=== PATIENT | female | born 1955 | race Caucasian/White ===

== ENCOUNTER 2017-10-22 05:43 | Emergency (ER) | payer MEDICAID ==
[2017-10-22 05:43] VITALS: BMI 37.1
[2017-10-22 06:03] VITALS: BP 104/73; PULSE 78; TEMP 97.5; O2SAT 99
[2017-10-22] MEDS ORDERED: Naproxen 550 mg Tab PO STA (07:26)
--- NOTE | 2017-10-22 07:30 | C.PDOC ---
History Of Present Illness 62-year-old female, presents to the emergency department complaining of bilateral hand numbness and tingling, primarily at lateral aspect of hands. Patient seen by Dr Hartman one week ago and given an injection in the area without improvement. She denies injuries or falls. No other complaints at this time. Time Seen by Provider: 10/22/17 07:02 Chief Complaint (Nursing): Upper Extremity Problem/Injury History Per: Patient History/Exam Limitations: no limitations Onset/Duration Of Symptoms: Days Current Symptoms Are (Timing): Still Present Past Medical History Reviewed: Historical Data, Nursing Documentation, Vital Signs Vital Signs: Last Vital Signs Temp 97.5 F L 10/22/17 05:53 Pulse 78 10/22/17 05:53 Resp 18 10/22/17 07:55 BP 104/73 10/22/17 05:53 Pulse Ox 99 10/22/17 11:48 - Medical History PMH: Arthritis, Back Problems, Depression, Diabetes (type II), GERD, Hypercholesterolemia, Hypothyroidism, Malignancy (right breast (chemotherapy x6 , radiation x35)) Denies: Chronic Kidney Disease - [facility] Procedures COLONOSCOPY (04/12/15) ESOPHAGOGASTRODUODENOSCOPY [EGD] W/CLOSED BIOPSY (02/06/13) PHYSICAL THERAPY NEC (09/07/14) Family History: States: No Known Family Hx - Social History Hx Alcohol Use: No Hx Substance Use: No - Immunization History Hx Tetanus Toxoid Vaccination: No Hx Influenza Vaccination: No Hx Pneumococcal Vaccination: No Review Of Systems Constitutional: Negative for: Fever, Chills Cardiovascular: Negative for: Chest Pain Respiratory: Negative for: Shortness of Breath Gastrointestinal: Negative for: Nausea, Vomiting Neurological: Positive for: Numbness ((+)tingling, pain to wrist.). Negative for: Weakness, Incoordination, Headache, Dizziness Physical Exam - Physical Exam Appears: Non-toxic, No Acute Distress Skin: Normal Color, Warm, Dry, No Rash Head: Atraumatic, Normacephalic Nose: Normal Oral Mucosa: Moist Lips: Normal Appearing Neck: Normal ROM Chest: Symmetrical Cardiovascular: Rhythm Regular, No Murmur Respiratory: Normal Breath Sounds, No Accessory Muscle Use Extremity: Tenderness, Capillary Refill (<2 seconds), No Deformity, No Swelling , Other (Tender to palpation at lateral wrist, able to reproduce numbness/ tingling sensation by palpation) Pulses: Left Radial: Normal, Right Radial: Normal Neurological/Psych: Oriented x3, Normal Speech ED Course And Treatment O2 Sat by Pulse Oximetry: 99 (RA) Pulse Ox Interpretation: Normal Progress Note: Patient treated with PO Naproxen. On re-evaluation, pain has improved. Patient is resting comfortably, and is in no acute distress. Patients B/L wrists placed in splint by automotive service technician. Patient was instructed to follow up with physician/clinic in 1-2 days for further evaluation. Disposition Counseled Patient/Family Regarding: Diagnosis, Need For Followup, Rx Given - Disposition Referrals: Jose Angel Hartman MD [Staff Provider] - Karissa Yee MD [Staff Provider] - Disposition: HOME/ ROUTINE Disposition Time: 07:30 Condition: STABLE Additional Instructions: FOLLOW UP WITH HAND SURGEON WITHIN 1 WEEK USE PAIN MEDICATION DIRECTED RETURN TO EMERGENCY ROOM IF SYMPTOMS WORSEN SEGUIMIENTO CON CIRUJANO DE MANO DENTRO DE 1 SEMANA UTILIZAR EL MEDICAMENTO PARA EL DOLOR TONIA SE INDICA REGRESE AL KRISTYN DE EMERGENCIA SI LOS SNTOMAS EMPEORAN Prescriptions: Naproxen [Naprosyn] 1 tab PO BID PRN #25 tab PRN Reason: Pain Instructions: Carpal Tunnel Syndrome Forms: [facility] (Bermudian) Print Language: TURKISH - POA Present On Arrival: None - Clinical Impression Clinical Impression: Hand pain, Carpal tunnel syndrome on both sides - Scribe Statement The provider has reviewed the documentation as recorded by the Scribe (Mónica Pearson) All medical record entries made by the Scribe were at my direction and personally dictated by me. I have reviewed the chart and agree that the record accurately reflects my personal performance of the history, physical exam, medical decision making, and the department course for this patient. I have also personally directed, reviewed, and agree with the discharge instructions and disposition.
[2017-10-22] MEDS ORDERED: Naproxen 550 mg Tab PO ONE (07:36)
[2017-10-22 07:56] VITALS: RESP 18
== END 2017-10-22 07:55 | disposition home or self-care (01) ==
LOC: C.ER 05:43
DX: G56.03 Carpal tunnel syndrome, bilateral upper limbs (principal); M79.642 Pain in left hand; M79.641 Pain in right hand

== ENCOUNTER 2018-01-08 13:18 | Emergency (ER) | payer MEDICAID ==
[2018-01-08 13:18] VITALS: BMI 37.1
--- NOTE | 2018-01-08 15:02 | RAD ---
PROCEDURE: Left Foot Radiographs. HISTORY: Posttraumatic pain COMPARISON: None. FINDINGS: BONES: No acute fracture. Small plantar calcaneal spur. Osseous excrescence is identified adjacent to the talus suggests the sequela of prior trauma JOINTS: Normal. SOFT TISSUES: Normal. OTHER FINDINGS: None. IMPRESSION: No acute findings related to/accounting for the clinical presentation.
--- NOTE | 2018-01-08 15:02 | RAD ---
PROCEDURE: Right Knee Radiographs. HISTORY: Posttraumatic pain. COMPARISON: None. FINDINGS: BONES: Normal. No fracture. JOINTS: Normal. No osteoarthritis. JOINT EFFUSION: None. OTHER FINDINGS: None. IMPRESSION: Unremarkable radiographs of the right knee.
--- NOTE | 2018-01-08 15:17 | C.PDOC ---
History Of Present Illness 62 y/o female presents to the ER complaining of pain to the right knee and left foot after she fell down 4 steps last night. Patient states that she has been ambulating with pain. Patient denies having head injuries, LOC, weakness and numbness. Time Seen by Provider: 01/08/18 14:06 Chief Complaint (Nursing): Lower Extremity Problem/Injury History Per: Patient History/Exam Limitations: no limitations Onset/Duration Of Symptoms: Days Current Symptoms Are (Timing): Still Present Severity: Moderate Past Medical History Reviewed: Historical Data, Nursing Documentation, Vital Signs Vital Signs: Last Vital Signs Temp 98.4 F 01/08/18 16:11 Pulse 65 01/08/18 16:11 Resp 15 01/08/18 16:11 BP 111/72 01/08/18 16:11 Pulse Ox 95 01/08/18 16:11 - Medical History PMH: Arthritis, Back Problems, Depression, Diabetes (type II), GERD, Hypercholesterolemia, Hypothyroidism, Malignancy (right breast (chemotherapy x6 , radiation x35)) Denies: Chronic Kidney Disease Other Surgeries: Hx of surgeries - [facility] Procedures COLONOSCOPY (04/12/15) ESOPHAGOGASTRODUODENOSCOPY [EGD] W/CLOSED BIOPSY (02/06/13) PHYSICAL THERAPY NEC (09/07/14) Family History: States: No Known Family Hx - Social History Hx Alcohol Use: No Hx Substance Use: No - Immunization History Hx Tetanus Toxoid Vaccination: No Hx Influenza Vaccination: No Hx Pneumococcal Vaccination: No Review Of Systems Except As Marked, All Systems Reviewed And Found Negative. Musculoskeletal: Positive for: Foot Pain (left foot pain), Other (right knee pain) Physical Exam - Physical Exam Appears: Non-toxic, No Acute Distress Skin: Normal Color, Warm, Dry Head: Atraumatic, Normacephalic Eye(s): bilateral: Normal Inspection Nose: Normal Oral Mucosa: Moist Neck: Supple Chest: Symmetrical Cardiovascular: Rhythm Regular Respiratory: Normal Breath Sounds, No Rales, No Rhonchi, No Wheezing Extremity: Normal ROM, Tenderness (tenderness to medial aspect of right knee), No Swelling, Other (no injuries noted (+) tenderness to left lateral hind foot, no gross deformity, no swelling, nv intact. ) Neurological/Psych: Oriented x3, Normal Speech, Normal Motor, Normal Sensation ED Course And Treatment O2 Sat by Pulse Oximetry: 98 (RA) Pulse Ox Interpretation: Normal - Other Rad X-Ray- Right Knee X-Ray: Viewed By Me, Read By Radiologist Interpretation: PROCEDURE: Right Knee Radiographs. HISTORY: Posttraumatic pain. COMPARISON: None. FINDINGS: BONES: Normal. No fracture. JOINTS: Normal. No osteoarthritis. JOINT EFFUSION: None. OTHER FINDINGS: None. IMPRESSION: Unremarkable radiographs of the right knee. X-Ray - Left Foot X-Ray: Viewed By Me, Read By Radiologist Interpretation: PROCEDURE: Left Foot Radiographs. HISTORY: Posttraumatic pain. COMPARISON: None. FINDINGS: BONES: No acute fracture. Small plantar calcaneal spur. Osseous excrescence is identified adjacent to the talus suggests the sequela of prior trauma. JOINTS: Normal. SOFT TISSUES: Normal. OTHER FINDINGS: None. IMPRESSION: No acute findings related to/accounting for the clinical presentation. Medical Decision Making Medical Decision Making: Assessment: Contusion Plan: --X- Ray- Right Knee -- X-Ray - Left Foot --Motrin PO --Ultram PO Updates: X-Rays are negative. Patient has been discharged. Patient has been instructed to follow up with PMD in 2 days and return to the ER if symptoms worsen. Disposition Counseled Patient/Family Regarding: Studies Performed, Diagnosis, Need For Followup, Rx Given - Disposition Referrals: Jose Angel Hartman MD [Staff Provider] - Disposition: HOME/ ROUTINE Disposition Time: 15:15 Condition: STABLE Additional Instructions: follow up with your doctor in 2 days call to make an appointment take medications as needed for pain return to hospital if symptoms worsens or progress Prescriptions: Acetaminophen/Codeine [Tylenol/Codeine 300 MG/30 MG] 1 tab PO Q6H PRN #12 tab PRN Reason: Pain, Severe (8-10) Naproxen [Naprosyn] 500 mg PO BID PRN #16 tab PRN Reason: Pain, Moderate (4-7) Instructions: Contusion (DC) Forms: Gen Discharge Inst Yakut, [facility] (Yakut), Work Excuse - Clinical Impression Clinical Impression: Contusion - Scribe Statement The provider has reviewed the documentation as recorded by the Gregg Meehan Provider Attestation: All medical record entries made by the Shericeibe were at my direction and personally dictated by me. I have reviewed the chart and agree that the record accurately reflects my personal performance of the history, physical exam, medical decision making, and the department course for this patient. I have also personally directed, reviewed, and agree with the discharge instructions and disposition.
[2018-01-08 16:12] VITALS: BP 111/72; PULSE 65; RESP 15; TEMP 98.4
[2018-01-10 17:19] VITALS: O2SAT 98
== END 2018-01-08 16:11 | disposition home or self-care (01) ==
LOC: C.ER 13:18
DX: S80.01XA Contusion of right knee, initial encounter (principal); S90.32XA Contusion of left foot, initial encounter; W10.9XXA Fall (on) (from) unspecified stairs and steps, initial encounter

== ENCOUNTER 2019-01-11 18:04 | Emergency (ER) | payer MEDICAID ==
[2019-01-11 18:04] VITALS: BMI 37.1
[2019-01-11 18:12] VITALS: BP 160/92; PULSE 75; RESP 20; TEMP 98; O2SAT 95
[2019-01-11] MEDS ORDERED: Tetracaine 0.5% Ophth (OR ONLY) ONE (18:47)
[2019-01-11] MEDS ORDERED: Fluorescein 1 mg Ophthalmic Strip ONE (18:47)
--- NOTE | 2019-01-11 19:23 | C.PDOC ---
History Of Present Illness 63 year old female presents to the ED complaining of itching and pain to bilateral eyes since this morning. Associated symptoms include decreased vision. Reports that she believes the irritation is due to fumes coming inside her apartment from her neighbor's apartment. Also notes she has been rubbing her eyes with tissues. States she was seen at [facility] this morning for same symptoms and was diagnosed with bilateral corneal abrasions and Otitis media. Reports she was given antibiotics and and an ointment cream but she was not given any pain medications. Denies any other complaints. Chief Complaint (Nursing): Eye Problem History Per: Patient History/Exam Limitations: no limitations Onset/Duration Of Symptoms: Hrs Current Symptoms Are (Timing): Still Present Quality: "Pain" Associated Symptoms: Pain, Decreased Vision, Itching Past Medical History Reviewed: Historical Data, Nursing Documentation, Vital Signs Vital Signs: Last Vital Signs Temp 98 F 01/11/19 18:09 Pulse 75 01/11/19 18:09 Resp 20 01/11/19 18:09 BP 160/92 H 01/11/19 18:09 Pulse Ox 95 01/11/19 18:09 Primary Care Provider: Peyton Oreilly - Medical History PMH: Arthritis, Back Problems, Depression, Diabetes (type II), GERD, Hypercholesterolemia, Hypothyroidism, Malignancy (right breast (chemotherapy x6, radiation x35)) Denies: Chronic Kidney Disease Surgical History: No Surg Hx - [facility] Procedures COLONOSCOPY (04/12/15) ESOPHAGOGASTRODUODENOSCOPY [EGD] W/CLOSED BIOPSY (02/06/13) PHYSICAL THERAPY NEC (09/07/14) Family History: States: No Known Family Hx - Social History Hx Alcohol Use: No Hx Substance Use: No - Immunization History Hx Tetanus Toxoid Vaccination: No Hx Influenza Vaccination: No Hx Pneumococcal Vaccination: No Review Of Systems Constitutional: Negative for: Fever, Chills Eyes: Positive for: Pain, Vision Change, Redness, Other (decreased vision and itching bilaterally ) ENT: Negative for: Nose Discharge, Throat Pain Gastrointestinal: Negative for: Nausea, Vomiting Skin: Negative for: Rash, Bruising Neurological: Negative for: Weakness, Headache, Dizziness Physical Exam - Physical Exam Appears: Non-toxic, No Acute Distress Skin: Warm, Dry, No Rash Head: Atraumatic, Normacephalic Eye(s): bilateral: PERRL, EOMI, Other (severe conjuctival injection) Ear(s): Left: Normal, Right: TM Erythema (slight ) Nose: Normal Oral Mucosa: Moist Tongue: Normal Appearing Lips: Normal Appearing Teeth: Normal Dentition Gingiva: Normal Appearing Throat: Normal, No Erythema, No Exudate Neck: Normal ROM, Supple Chest: Symmetrical Cardiovascular: Rhythm Regular Respiratory: Normal Breath Sounds, No Accessory Muscle Use, No Rales, No Rhonchi, No Wheezing Neurological/Psych: Oriented x3, Normal Speech, Normal Cognition, Normal Motor, Normal Sensation Gait: Steady ED Course And Treatment O2 Sat by Pulse Oximetry: 95 (RA) Pulse Ox Interpretation: Normal Medical Decision Making Medical Decision Making: Plan - Motrin 800mg PO - Fluorescein Staining On evaluation, large abrasion to the inferior portion of the right cornea from 3 to 9oclock position that takes up 50% of cornea on Fluorescein uptake and small abrasion to inferior portion of left cornea versus dry eye on Fluorescein uptake. Patient instructed to continue prescribed meds from [facility]- topical and oral antibiotics and follow up with [employer] on Sunday. Disposition Counseled Patient/Family Regarding: Diagnosis, Need For Followup, Rx Given - Disposition Referrals: Cyrus Urias [Staff Provider] - Disposition: HOME/ ROUTINE Disposition Time: 19:23 Condition: IMPROVED Additional Instructions: Benadryl as needed for itching Motrin as needed for pain continue prescribed meds from [facility]- topical and oral antibiotics Follow up with [employer] on Sunday Return to ED if symptoms worsen Benadryl segn sea necesario para la picazn Motrin segn sea necesario para el dolor continuar con los medicamentos recetados de [facility]-antibiticos tpicos y orales Seguimiento con oftalmlogo el Regrese a la ED si los sntomas empeoran Prescriptions: DiphenhydrAMINE [Benadryl] 25 mg PO BID PRN #14 cap PRN Reason: Itching / Pruritus Ibuprofen [Motrin] 600 mg PO Q8 PRN #30 tab PRN Reason: Pain, Moderate (4-7) Instructions: Ear Infections (Otitis Media) (DC), Corneal Abrasion (DC) Forms: [employer] (Bulgarian) Print Language: KOREAN - Clinical Impression Clinical Impression: Pain in eye, Corneal abrasion, Otitis media - PA / HOSPITAL INSURANCE REPRESENTATIVE / Resident Statement MD/DO has reviewed & agrees with the documentation as recorded. - Scribe Statement The provider has reviewed the documentation as recorded by the Scribe Abby Agee All medical record entries made by the Shericeibanaya were at my direction and personally dictated by me. I have reviewed the chart and agree that the record accurately reflects my personal performance of the history, physical exam, medical decision making, and the department course for this patient. I have also personally directed, reviewed, and agree with the discharge instructions and disposition.
== END 2019-01-11 19:43 | disposition home or self-care (01) ==
LOC: C.ER 18:04
DX: H57.13 Ocular pain, bilateral (principal); S05.02XA Injury of conjunctiva and corneal abrasion without foreign body, left eye, initial encounter; S05.01XA Injury of conjunctiva and corneal abrasion without foreign body, right eye, initial encounter; X58.XXXA Exposure to other specified factors, initial encounter; H66.93 Otitis media, unspecified, bilateral; E11.9 Type 2 diabetes mellitus without complications; E78.00 Pure hypercholesterolemia, unspecified; E03.9 Hypothyroidism, unspecified